=== PATIENT | female | born 1985 | race African-American/Black ===

== ENCOUNTER 2024-08-15 01:26 | Emergency (ER) | payer MEDICAID ==
[~2024-08-15] VITALS: Ht 160 cm; Wt 69.0 kg
[2024-08-15 01:42] VITALS: O2SAT 99
[2024-08-15] MEDS: ACETAMINOPHEN 500MG TABLET PO ONE (03:06)
[2024-08-15] MEDS ORDERED: AMOX1TAB16 MT (04:12)
[2024-08-15] MEDS ORDERED: BO1 TP (04:12)
[2024-08-15] MEDS ORDERED: IBUP-2029 MT (04:12)
[2024-08-15 04:56] VITALS: BP 138/83; PULSE 79; RESP 18; TEMP 36.9; O2SAT 97
== END 2024-08-15 04:55 | disposition home or self-care (01) ==
LOC: ER 01:26
DX: S02.2XXA Fracture of nasal bones, initial encounter for closed fracture (principal); S09.8XXA Other specified injuries of head, initial encounter; X58.XXXA Exposure to other specified factors, initial encounter; Y93.89 Activity, other specified; Y92.89 Other specified places as the place of occurrence of the external cause; Y99.8 Other external cause status
CPT/HCPCS: 70486; 81025; 99284